=== PATIENT | female | born 1985 | race Caucasian/White ===

== ENCOUNTER 2017-04-09 16:06 | Emergency (ER) | payer OTHER ==
[2017-04-09 16:56] LABS: BASOPHIL 0.2 % (0-2); EOSINOPHIL 5.6 % (0-5); HCT 36.9 % (37.0-47.0); HGB 13.2 g/dl (12.5-16.0); LYMPHOCYTE 32.8 % (15-48); MCH 32.6 pg (25.0-31.0); MCHC 35.8 g/dL (32.0-36.0); MCV 91.1 fL (78.0-100.0); MONOCYTE 6.2 % (0-12); MPV 9.1 fL (6.0-9.5); NEUTROPHIL 55.2 % (41-80); PLT 219 K/uL (150-400); RBC 4.05 M/uL (4.20-5.40); RDW 12.6 % (11.5-14.0); WBC 5.2 K/uL (4.0-10.5)
[2017-04-09 16:57] LABS: BILIRUBIN NEGATIVE (NEGATIVE); BLOOD 2+ Ery/uL (NEGATIVE); CLARITY CLEAR (CLEAR); COLOR YELLOW (YELLOW); GLUCOSE (U) NORMAL (NORMAL); KETONE (U) NEGATIVE (NEGATIVE); LEUKOCYTES NEGATIVE Leu/uL (NEGATIVE); NITRITE NEGATIVE (NEGATIVE); PROTEIN NEGATIVE (NEGATIVE); SPECIFIC GRAVITY 1.025 (1.001-1.030); UROBILINOGEN 0.2 mg/dL (0.2-1.0)
[2017-04-09 17:06] LABS: BACTERIA 2+
[2017-04-09 17:08] LABS: AMPHETAMINES NEGATIVE (NEGATIVE); BARBITURATES NEGATIVE (NEGATIVE); BENZODIAZEPINES NEGATIVE (NEGATIVE); COCAINE NEGATIVE (NEGATIVE); MARIJUANA (THC) NEGATIVE (NEGATIVE); METHADONE NEGATIVE (NEGATIVE); TRICYCLIC ANTIDEPRESSANT NEGATIVE (NEGATIVE)
[2017-04-09 17:14] LABS: CREATININE 0.7 mg/dL (0.5-1.0); POTASSIUM 3.9 mmol/L (3.5-5.1)
== END 2017-04-09 19:17 | disposition home or self-care (01) ==
LOC: FER 16:06
PROVIDERS: Emergency Medicine
DX: N30.01 Acute cystitis with hematuria (principal); R63.0 Anorexia; F17.210 Nicotine dependence, cigarettes, uncomplicated; Z87.442 Personal history of urinary calculi; Z87.19 Personal history of other diseases of the digestive system; Z90.49 Acquired absence of other specified parts of digestive tract; Z98.51 Tubal ligation status; Z88.0 Allergy status to penicillin
CPT/HCPCS: 36415; 80048; 80305; 81001; 85025; J1885; J2405

== ENCOUNTER 2020-10-10 17:49 | Emergency (ER) | payer OTHER ==
[~2020-10-10 17:49] MED LIST: BENTYL10 MG PO; FLEXERIL10 MG PO; MEDROL 4MG DOSEP4 MG PO; NEURONTIN300 MG PO; PEPCID AC20 MG PO; VOLTAREN **OUT75 MG PO; ZYRTEC10 M3 PO
[2020-10-10 18:49] LABS: BASOPHIL 0.2 % (0-2); EOSINOPHIL 0.8 % (0-5); HGB 13.9 g/dl (12.5-16.0); LYMPHOCYTE 29.3 % (15-48); MCH 31.9 pg (25.0-31.0); MCHC 34.8 g/dL (32.0-36.0); MCV 91.7 fL (78.0-100.0); MPV 9.4 fL (6.0-9.5); NEUTROPHIL 63.5 % (41-80); NRBC 0; PLT 263 K/uL (150-400); RBC 4.36 M/uL (4.20-5.40); RDW 12.8 % (11.5-14.0)
[2020-10-10 19:10] LABS: ALBUMIN 4.8 g/dL (3.4-5.0); BILIRUBIN - TOTAL 0.8 mg/dL (0.2-1.0); BUN/CREAT RATIO (CALC) 27.3 RATIO; CREATININE 0.66 mg/dL (0.51-0.95); GLOBULIN (CALCULATION) 3.9 g/dL; POTASSIUM 3.3 mmol/L (3.5-5.1); TOTAL PROTEIN 8.7 g/dL (6.4-8.2)
== END 2020-10-10 23:48 ==
LOC: FER 17:49
PROVIDERS: Emergency Medicine
DX: R10.84 Generalized abdominal pain (principal)
CPT/HCPCS: 36415; 74018; 80053; 85025

== ENCOUNTER 2021-09-01 04:03 | Emergency (ER) | payer OTHER ==
[2021-09-01] MEDS ORDERED: NALOXONE H0.4 MG/1 M INH (06:07)
== END 2021-09-01 06:35 | disposition home or self-care (01) ==
LOC: FER 04:03
DX: T40.1X1A Poisoning by heroin, accidental (unintentional), initial encounter (principal); F17.200 Nicotine dependence, unspecified, uncomplicated; Z88.0 Allergy status to penicillin
CPT/HCPCS: 71045

== ENCOUNTER 2021-10-03 16:13 | Emergency (ER) | payer OTHER ==
[~2021-10-03 16:13] MED LIST changes: +NALOXONE H0.4 MG/1 M INH
[2021-10-03 18:14] LABS: BASOPHIL 0.5 % (0-2); EOSINOPHIL 2.7 % (0-5); HCT 42.5 % (37.0-47.0); HGB 14.5 g/dl (12.5-16.0); LYMPHOCYTE 28.9 % (15-48); MCH 31.9 pg (25.0-31.0); MCHC 34.1 g/dL (32.0-36.0); MCV 93.6 fL (78.0-100.0); MONOCYTE 5.3 % (0-12); MPV 8.9 fL (6.0-9.5); NEUTROPHIL 62.6 % (41-80); NRBC 0; PLT 348 K/uL (150-400); RBC 4.54 M/uL (4.20-5.40); RDW 12.5 % (11.5-14.0); WBC 6.4 K/uL (4.0-10.5)
[2021-10-03 18:32] LABS: ALBUMIN 4.4 g/dL (3.4-5.0); BILIRUBIN - TOTAL 0.3 mg/dL (0.2-1.0); BUN/CREAT RATIO (CALC) 19.5 RATIO; CREATININE 0.87 mg/dL (0.51-0.95); GLOBULIN (CALCULATION) 3.5 g/dL; POTASSIUM 4.1 mmol/L (3.5-5.1); TOTAL PROTEIN 7.9 g/dL (6.4-8.2)
[2021-10-03 19:22] LABS: BILIRUBIN NEGATIVE (NEGATIVE); BLOOD 3+ Ery/uL (NEGATIVE); COLOR YELLOW (YELLOW); GLUCOSE (U) NORMAL (NORMAL); LEUKOCYTES NEGATIVE Leu/uL (NEGATIVE); NITRITE NEGATIVE (NEGATIVE); PROTEIN 1+ mg/dL (NEGATIVE); SPECIFIC GRAVITY >=1.030 (1.001-1.030); UROBILINOGEN 0.2 mg/dL (0.2-1.0)
[2021-10-03 19:23] LABS: CLARITY SLIGHTLY HAZY (CLEAR)
[2021-10-03 19:32] LABS: BACTERIA TRACE; URINARY RBC 20-50; URINARY WBC RARE
[2021-10-03] MEDS ORDERED: KETOROLAC TROME10 MG PO (20:31)
[2021-10-03] MEDS ORDERED: FLOMAX 0.4 MG0.4 MG PO (20:31)
[2021-10-03] MEDS ORDERED: ONDANSETRON ODT4 MG PO (20:31)
== END 2021-10-03 20:45 | disposition home or self-care (01) ==
LOC: FER 16:13
PROVIDERS: Physician Assistant
DX: N13.2 Hydronephrosis with renal and ureteral calculous obstruction (principal); F17.210 Nicotine dependence, cigarettes, uncomplicated; Z88.1 Allergy status to other antibiotic agents; Z88.0 Allergy status to penicillin
CPT/HCPCS: 36415; 80053; 81001; 85025; J1885; J2405

== ENCOUNTER 2021-10-16 22:13 | Emergency (ER) | payer OTHER ==
[~2021-10-16 22:13] MED LIST changes: +FLOMAX 0.4 MG0.4 MG PO; +KETOROLAC TROME10 MG PO; +ONDANSETRON ODT4 MG PO
[2021-10-16 23:32] LABS: BASOPHIL 0.6 % (0-2); EOSINOPHIL 1.9 % (0-5); HCT 36.9 % (37.0-47.0); HGB 12.6 g/dl (12.5-16.0); LYMPHOCYTE 23.8 % (15-48); MCH 32.2 pg (25.0-31.0); MCHC 34.1 g/dL (32.0-36.0); MCV 94.4 fL (78.0-100.0); MONOCYTE 5.8 % (0-12); MPV 9.4 fL (6.0-9.5); NEUTROPHIL 67.8 % (41-80); NRBC 0; PLT 252 K/uL (150-400); RBC 3.91 M/uL (4.20-5.40); RDW 12.2 % (11.5-14.0); WBC 7.2 K/uL (4.0-10.5)
[2021-10-16 23:38] LABS: BILIRUBIN NEGATIVE (NEGATIVE); BLOOD 3+ Ery/uL (NEGATIVE); CLARITY CLEAR (CLEAR); COLOR YELLOW (YELLOW); GLUCOSE (U) NORMAL (NORMAL); LEUKOCYTES NEGATIVE Leu/uL (NEGATIVE); NITRITE NEGATIVE (NEGATIVE); PROTEIN NEGATIVE (NEGATIVE); SPECIFIC GRAVITY 1.025 (1.001-1.030); UROBILINOGEN 0.2 mg/dL (0.2-1.0)
[2021-10-16 23:45] LABS: URINARY WBC RARE
[2021-10-16 23:46] LABS: AMORPHOUS URATES CRYSTALS TRACE; BACTERIA TRACE; ECSTASY (MDMA) POSITIVE (NEGATIVE); MARIJUANA (THC) NEGATIVE (NEGATIVE); METHADONE NEGATIVE (NEGATIVE); MUCOUS MODERATE
[2021-10-16 23:47] LABS: ALBUMIN 3.5 g/dL (3.4-5.0); BILIRUBIN - TOTAL 0.2 mg/dL (0.2-1.0); BUN/CREAT RATIO (CALC) 15.3 RATIO; CREATININE 0.98 mg/dL (0.51-0.95); GLOBULIN (CALCULATION) 2.9 g/dL; TOTAL PROTEIN 6.4 g/dL (6.4-8.2)
[2021-10-16 23:47] LABS: AMPHETAMINES POSITIVE (NEGATIVE); BARBITURATES NEGATIVE (NEGATIVE); OPIATES NEGATIVE (NEGATIVE); OXYCODONE NEGATIVE (NEGATIVE)
== END 2021-10-17 01:40 | disposition home or self-care (01) ==
LOC: FER 22:13
PROVIDERS: Emergency Medicine
DX: N20.0 Calculus of kidney (principal)
CPT/HCPCS: 36415; 80053; 80305; 81001; 83690; 85025; J1885; J2405; J7030

== ENCOUNTER 2021-12-05 08:06 | Emergency (ER) | payer OTHER ==
[2021-12-05] MEDS ORDERED: NARCAN4 MG (08:55)
== END 2021-12-05 09:44 | disposition home or self-care (01) ==
LOC: FER 08:06
DX: T40.1X1A Poisoning by heroin, accidental (unintentional), initial encounter (principal); Z88.0 Allergy status to penicillin
CPT/HCPCS: 99284

== ENCOUNTER 2022-03-18 00:41 | Emergency (ER) | payer OTHER ==
[~2022-03-18 00:41] MED LIST changes: +NARCAN4 MG
[2022-03-18] MEDS ORDERED: NAPROXEN500 MG PO (03:17)
[2022-03-18] MEDS ORDERED: NORCO 5-325 TA1 EACH PO (03:17)
== END 2022-03-18 04:12 | disposition home or self-care (01) ==
LOC: FER 00:41
DX: S01.112A Laceration without foreign body of left eyelid and periocular area, initial encounter (principal); R68.84 Jaw pain; Z23 Encounter for immunization; Z88.0 Allergy status to penicillin; Y04.0XXA Assault by unarmed brawl or fight, initial encounter; Y92.009 Unspecified place in unspecified non-institutional (private) residence as the place of occurrence of the external cause
CPT/HCPCS: 70450; 70486; 72125; 90471; 90715